=== PATIENT | female | born 1980 | race Caucasian/White ===

== ENCOUNTER 2021-03-06 17:59 | Emergency (ER) | payer OTHER, MEDICAID, SELFPAY ==
[2021-03-06 18:29] VITALS: BP 115/56; PULSE 73; RESP 18; TEMP 36.4; O2SAT 98; BMI 21.9
--- NOTE | 2021-03-06 21:45 | PC.NURSE ---
patient hit in the eye with wood, patient states her colored portion of her eye went from green to brown and back to green. Patient has cut along eye lid and on top of eye lid. Swelling and bruising noted. Patient states her vision has cleared up since being here. Bleeding controlled at this time, scab formed on eye lid.
--- NOTE | 2021-03-06 22:35 | ED_ITS ---
HPI - Eye Problem General Chief complaint: Eye Problems Stated complaint: Left eye injury Time Seen by Provider: 03/06/21 22:30 Source: patient Mode of arrival: Family Vehicle Limitations: no limitations History of Present Illness HPI Narrative: This is a 40-year-old female who was cutting wood using a saw when a piece of wood kicked back and hit her in the left upper eyelid. Patient states she developed a bit of bruising. She has a small cut and noted that it seemed like there was a change the color of her eye itself she states her vision was quite blurry initially but has improved. She has some pain with movement at the extremes. She does not normally wear glasses or contacts. She has never had any injuries to her eyes. She was not wearing safety goggles. She states her tetanus is up-to-date. She takes medication for Crohn's but denies any other medical issues. No major surgeries. She is allergic to penicillin and states she cannot take Imuran. Related Data Previous Rx's Medication Instructions Recorded amoxicillin 875 mg-potassium 875 mg PO BID #20 tab 02/04/16 clavulanate 125 mg tablet (Augmentin) prednisone 20 mg tablet 20 mg PO BID #10 tab 02/04/16 Allergies Allergy/AdvReac Type Severity Reaction Status Date / Time From IMURAN Allergy Mild Uncoded 03/06/21 18:29 PENICILLIN Allergy Mild Uncoded 03/06/21 18:29 Review of Systems Review of Systems ROS Unobtainable: All systems reviewed & are unremarkable except as noted in HPI and below Patient History Social History Smoking Status: Never smoker Smoking Status: Never smoker alcohol intake frequency: holidays/special occasions only Substance Use Type: marijuana Exam Narrative Exam Narrative: GEN: well nourished, well appearing female, alert and oriented x 3, patient appears to be in mild distress. HEENT: Atraumatic, pupils are equal round reactive to light, extraocular movements are intact, nares are clear, there is no conjunctival pallor. No bony tenderness to the face. Throat is clear without any exudates, erythema, tonsillar enlargement or uvular deviation, no other facial injuries. Patient does have ecchymosis and swelling of the left upper lid. There is a small 0.5 cm laceration that is superficial over the upper lid. There is also a punctate lack at the edge of the lid that does not gape. Visual acuity: right [20/25], left [20/40] without correction. IOP: Right [default value] mm Hg, Left 15 mm Hg General: no globe trauma Eyelids: normal inspection, eyelids everted for exam on left. Conjunctiva/Sclera: normal inspection on right, left sclera is slightly injected. No subconjunctival hemorrhages appreciated. Corneas: normal inspection, examined with fluroscein on left with no uptake. EOM: intact, no palsy/entrapment Pupils: PERRL, normal accomadation, pupil normal Anterior Chambers: normal inspection, no hypema noted. Posterior: normal fundoscopic on bilateral HEART: Regular rate and rhythm without murmur, clicks, rubs. LUNGS:Lungs clear to auscultation, no wheezes, rales, crackles, chest moves symmetrically ABD:bowel sounds normal, soft, non-tender, no guarding, rebound, rigidity, no masses noted, no hepatosplenomegaly MSCL: full range of motion, normal gait NEURO:CN 2-12 intact, sensation normal SKIN: See above. Initial Vital Signs Initial Vital Signs: Vital Signs Temperature 97.5 F L 03/06/21 18:29 Pulse Rate 73 03/06/21 18:29 Respiratory Rate 18 03/06/21 18:29 Blood Pressure 115/56 L 03/06/21 18:29 Pulse Oximetry 98 03/06/21 18:29 Course Orders Ordered: Discontinued Medications Fluorescein Sodium (Fluorescein 1 Mg Strip) 1 mg EYE-LEFT NOW ONE Stop: 03/06/21 22:35 Last Admin: 03/06/21 22:45 Dose: 1 mg Documented by: LI Proparacaine HCl (Proparacaine 0.5% Ophth Ginny) 1 drops EYE-LEFT NOW ONE Stop: 03/06/21 22:35 Last Admin: 03/06/21 22:45 Dose: 1 drop Documented by: LI Vital Signs Vital signs: Vital Signs - 8 hr 03/06/21 23:08 Pulse Rate 62 Respiratory Rate 12 Blood Pressure 112/68 Pulse Oximetry 98 MDM - Eye Problem MDM Narrative Medical decision making narrative: This is a 40-year-old female had left eye contusion with ecchymosis. Patient has 2 superficial lacerations 1 along the edge of the last which very slight puncture wound not require repair. The 2nd is a very superficial laceration over the upper lid and patient would likely not have improved healing with sutures and is not suitable for Dermabond. Patient had a close eye exam and no hyphema, foreign body or other changes were appreciated. Patient does have a slight difference in her visual acuity initially but her blurry vision has improved significantly while waiting to be seen. Patient's tetanus was updated. She was given referral for Ophthalmology for follow-up and asked to return if any worsening symptoms over the weekend. Discharge Plan Departure Patient Disposition: Home Clinical Impression: Eyelid laceration, Eye injury Instructions: Eye Contusion Activity Restrictions/Additional Instructions: You may follow-up with ophthalmology if he would like. Call Monday for an appointment. On your exam I did not see any foreign bodies, hyphema or injury to the eye itself. Wound Care: Keep wound(s) clean and dry. Wash daily with soap and water only. Do not use over the counter products (alcohol or peroxide)on the wounds unless instructed by a physician. You may use a topical triple antibiotic ointment to the upper laceration but do not apply to the edges of the lids. If wound condition worsens (increased/expanding redness, developing fluid blisters, or worsening pain), either contact your doctor for an urgent re- assessment , or return to the Emergency Department. Return to the Emergency Department for any new or worsening symptoms. Return if fever greater than 100.4 Fahrenheit, increased swelling, increasing pain or worsening symptoms such as increased discharge or spreading redness. Loss of vision, decreased vision, new or worsening pain in her eye, double visio n or other new or concerning symptoms. Prescriptions: No Action amoxicillin-pot clavulanate [Augmentin] 875 MG/125 MG tablet 875 mg PO BID Qty: 20 0RF prednisone 20 MG tablet 20 mg PO BID Qty: 10 0RF
[2021-03-06] MEDS: FLUORESCEIN 1 MG STRIP EYE-LEFT (22:45)
[2021-03-06] MEDS: PROPARACAINE 0.5% OPHTH SOL 1 DROPS EYE-LEFT (22:45)
[2021-03-06 23:08] VITALS: BP 112/68; PULSE 62; RESP 12; O2SAT 98
== END 2021-03-06 23:08 | disposition home or self-care (01) ==
PROVIDERS: Emergency Provider Emergency Medicine
DX: S01.112A Laceration without foreign body of left eyelid and periocular area, initial encounter (principal); S05.92XA Unspecified injury of left eye and orbit, initial encounter; W20.8XXA Other cause of strike by thrown, projected or falling object, initial encounter; Y93.89 Activity, other specified
CPT/HCPCS: 99282

== ENCOUNTER 2023-02-19 16:34 | Emergency (ER) | payer OTHER, MEDICAID, SELFPAY ==
[2023-02-19 16:49] VITALS: PULSE 67; RESP 16; TEMP 37.1; O2SAT 99; BMI 21.0
--- NOTE | 2023-02-19 16:52 | ED_ITS ---
HPI - Wound/Laceration <Hali Dickerson PA-C - Last Filed: 02/19/23 19:55> General Chief Complaint: Wound/Laceration Stated Complaint: v groove cutter cut left thumb Time Seen by Provider: 02/19/23 16:43 History of Present Illness HPI narrative: 42-year-old female here in the ED for a laceration to her left caused by a weed whacker. Occurred just prior to arrival. Patient has not been able to cleanse the wound due to pain. she is unsure of her last tetanus shot. She is able to wiggle the thumb and denies any feeling of numbness or tingling. Related Data Previous Rx's Medication Instructions Recorded amoxicillin 875 mg-potassium 875 mg PO BID #20 tabs 02/04/16 clavulanate 125 mg tablet (Augmentin) prednisone 20 mg tablet 20 mg PO BID #10 tabs 02/04/16 doxycycline hyclate 100 mg capsule 100 mg PO BID #20 caps 02/19/23 Allergies Allergy/AdvReac Type Severity Reaction Status Date / Time azathioprine [From Imuran] Allergy Verified 02/19/23 16:49 Penicillins AdvReac Yeast Verified 02/19/23 16:49 Infection Review of Systems <Hali Dickerson PA-C - Last Filed: 02/19/23 19:55> Review of Systems ROS Unobtainable: All systems reviewed & are unremarkable except as noted in HPI and below Patient History <Hali Dickerson PA-C - Last Filed: 02/19/23 19:55> Social History Smoking Status: Never smoker Smoking Status: Never smoker alcohol intake frequency: holidays/special occasions only Substance Use Type: marijuana Exam <Hali Dickerson PA-C - Last Filed: 02/19/23 19:55> Narrative Exam Narrative: GENERAL: [42] year old patient appears stated age. Well-developed patient, in no acute distress. Slightly pale upon arrival HEAD: Atraumatic. Normocephalic. EYES: Pupils equal round and reactive. Extraocular motions intact. No scleral icterus. No injection or drainage. ENT: Nose without bleeding, purulent drainage. Throat without erythema, tonsillar hypertrophy or exudate. Airway patent. NECK: Trachea midline. Non tender CARDIOVASCULAR: Regular rate and rhythm without murmurs, gallops, or rubs. RESPIRATORY: Respiratory rate and effort normal Extremities: Base of left thumb with 2 cm linear laceration to the palmar surface. Some minimal active bleeding, extends into the subcutaneous layer with no visible tendon or bone or foreign body noted. Full range of motion and strength of the affected digit, normal cap refill, normal sensation NEURO: AOx3. Initial Vital Signs Initial Vital Signs: Vital Signs Temperature 98.7 F 02/19/23 16:49 Pulse Rate 67 02/19/23 16:49 Respiratory Rate 16 02/19/23 16:49 Pulse Oximetry 99 02/19/23 16:49 Oxygen Delivery Method Room Air 02/19/23 16:49 <Sofía Webb MD - Last Filed: 02/20/23 04:27> Initial Vital Signs Initial Vital Signs: Vital Signs Temperature 98.7 F 02/19/23 16:49 Pulse Rate 67 02/19/23 16:49 Respiratory Rate 16 02/19/23 16:49 Pulse Oximetry 99 02/19/23 16:49 Oxygen Delivery Method Room Air 02/19/23 16:49 Procedures <Hali Dickerson PA-C - Last Filed: 02/19/23 19:55> Laceration Repair Laceration 1: Time of procedure: 05:45 Site: hand (Left thumb) Size (cm): 2 Description: linear Depth: involves muscle layer Local Anesthetic: lidocaine 2% Amount of anesthesia used (mL): 2.5 Pre-repair: wound explored, irrigated extensively and deep structures intact Skin layer closed with: nylon Skin layer suture size: 4-0 Number of sutures: 8 Technique: simple, interrupted Course <Hali Dickerson PA-C - Last Filed: 02/19/23 19:55> Orders Ordered: Discontinued Medications Diphtheria/Tetanus/Acell Pertussis (Tet,Diph,Pertuss(Acell),Vac/Pf 0.5 Ml Syringe) 0.5 ml IM .ONCE ONE Stop: 02/19/23 18:24 Last Admin: 02/19/23 18:30 Dose: 0.5 ml Documented By: YUNG Ketorolac Tromethamine (Ketorolac 30 Mg/Ml Vial) 60 mg IM NOW ONE Stop: 02/19/23 17:01 Last Admin: 02/19/23 17:13 Dose: Not Given Documented By: RL Ketorolac Tromethamine (Ketorolac 30 Mg/Ml Vial) 30 mg IM NOW ONE Stop: 02/19/23 17:13 Last Admin: 02/19/23 17:16 Dose: 30 mg Documented By: RL Lidocaine HCl (Lidocaine 2% Inj Sdv 5ml) 5 ml INJ INTRA-OP ONE Stop: 02/19/23 17:35 Last Admin: 02/19/23 17:37 Dose: 5 ml Documented By: RL Vital Signs Vital signs: Vital Signs - 8 hr 02/19/23 16:49 02/19/23 16:54 02/19/23 18:00 Temperature 98.7 F Pulse Rate 67 59 L Respiratory Rate 16 20 Blood Pressure 92/55 L 96/54 L Pulse Oximetry 99 100 Oxygen Delivery Method Room Air Room Air <Sofía Webb MD - Last Filed: 02/20/23 04:27> Orders Ordered: Discontinued Medications Diphtheria/Tetanus/Acell Pertussis (Tet,Diph,Pertuss(Acell),Vac/Pf 0.5 Ml Syringe) 0.5 ml IM .ONCE ONE Stop: 02/19/23 18:24 Last Admin: 02/19/23 18:30 Dose: 0.5 ml Documented By: YUNG Ketorolac Tromethamine (Ketorolac 30 Mg/Ml Vial) 60 mg IM NOW ONE Stop: 02/19/23 17:01 Last Admin: 02/19/23 17:13 Dose: Not Given Documented By: RL Ketorolac Tromethamine (Ketorolac 30 Mg/Ml Vial) 30 mg IM NOW ONE Stop: 02/19/23 17:13 Last Admin: 02/19/23 17:16 Dose: 30 mg Documented By: YUNG Lidocaine HCl (Lidocaine 2% Inj Sdv 5ml) 5 ml INJ INTRA-OP ONE Stop: 02/19/23 17:35 Last Admin: 02/19/23 17:37 Dose: 5 ml Documented By: YUNG Vital Signs Vital signs: Vital Signs - 8 hr 02/19/23 16:49 02/19/23 16:54 02/19/23 18:00 Temperature 98.7 F Pulse Rate 67 59 L Respiratory Rate 16 20 Blood Pressure 92/55 L 96/54 L Pulse Oximetry 99 100 Oxygen Delivery Method Room Air Room Air MDM - Wound/Laceration <Hali Dickerson PA-C - Last Filed: 02/19/23 19:55> Imaging Data Extremity x-ray #1: My Impression: [address] [address] XRay Report Signed Patient: Ashanti Garcia MR#: [id number] : 1980 Acct:[id number] Age/Sex: 42 / F Date of Service: 02/19/23 Loc: ED Accession Number: [id number] Procedure: XR finger LT min 2V Ordering Provider: Hali Dickerson P.A-C PROCEDURE: XR FINGER LT MIN 2V INDICATIONS: Laceration TECHNIQUE: AP hand, 2 views of the bony abnormality finger(s) acquired. COMPARISON: None. FINDINGS: Bones: There is a mild bony defect seen at the site of the soft tissue laceration, involving the distal radial aspect of the 1st metacarpal. A few tiny bone fragments can be seen within the surrounding soft tissues. No additional focal bony abnormality is seen. Soft tissues: Soft tissue laceration can be seen involving the base of the thumb. Soft tissue gas is seen. No radiopaque foreign bodies are seen. IMPRESSION: Laceration seen involving the radial aspect of the distal 1st metacarpal, with soft tissue defect and a mild amount of missing bone. Dictated by: Gerardo Drew M.D. on 02/19/2023 at 17:35 Approved by: Gerardo Drew M.D. on 02/19/2023 at 17:36 [facility] Narrative Medical decision making narrative: 42-year-old female here for laceration to the base of her left thumb. On exam she has a 2 cm linear laceration which appears to go to the muscle layer, but she has full range of motion, normal strength, normal sensation and cap refill. X-ray was performed which shows a tiny bony fragment to the lateral most portion of the finger. The laceration was repaired with 8 simple interrupted stitches which patient tolerated well and she continued to have normal sensation and cap refill as well as movement of her thumb. Due to the location of the laceration she was placed in a splint because any flexion of her thumb placed too much tension on the stitches. We will also provide patient with a prescription for antibiotics due to the bony fragments seen on x-ray. We discussed strict return precautions if there is any signs of infection, and to return in 8-10 days for suture removal Discharge Plan Departure Patient Disposition: Home Clinical Impression: Laceration of left thumb Qualifiers: Encounter type: initial encounter Damage to nail status: without damage Foreign body presence: without foreign body Qualified Code(s): S61.012A - Laceration without foreign body of left thumb without damage to nail, initial encounter Instructions: DI for Laceration Repair, DI for Laceration Repair -- Finger Activity Restrictions/Additional Instructions: You were seen today for a laceration of her left thumb. An x-ray was performed which showed no bony damage or evidence of foreign body. Eight stitches were placed in your left thumb which will need to be removed in 8-10 days. Please keep your thumb in the splint that was placed today. You may remove the splint twice daily to wash the area with soap and water gently. If you see any signs of redness, worsening pain, pus discharge or fevers please return to the ED. Otherwise follow up in 8-10 days for stitch removal. Prescriptions: New doxycycline hyclate 100 mg capsule 100 mg PO BID Qty: 20 0RF No Action amoxicillin-pot clavulanate [Augmentin] 875 MG/125 MG tablet 875 mg PO BID Qty: 20 0RF prednisone 20 MG tablet 20 mg PO BID Qty: 10 0RF Referrals: Alexey Wadsworth DO [Primary Care Provider] - Stand Alone Forms: Patient Portal/API ED Sign-out <Sofía Webb MD - Last Filed: 02/20/23 04:27> Cosign ED Attending Bernardo Attestation: I was immediately available in the department for consultation throughout this patient's visit. Sofía Webb MD
[2023-02-19 16:54] VITALS: BP 92/55
--- NOTE | 2023-02-19 16:58 | DI.RAD.S_ITS ---
PROCEDURE: XR FINGER LT MIN 2V INDICATIONS: Laceration TECHNIQUE: AP hand, 2 views of the bony abnormality finger(s) acquired. COMPARISON: None. FINDINGS: Bones: There is a mild bony defect seen at the site of the soft tissue laceration, involving the distal radial aspect of the 1st metacarpal. A few tiny bone fragments can be seen within the surrounding soft tissues. No additional focal bony abnormality is seen. Soft tissues: Soft tissue laceration can be seen involving the base of the thumb. Soft tissue gas is seen. No radiopaque foreign bodies are seen. IMPRESSION: Laceration seen involving the radial aspect of the distal 1st metacarpal, with soft tissue defect and a mild amount of missing bone. Dictated by: Gerardo Drew M.D. on 02/19/2023 at 17:35 Approved by: Gerardo Drew M.D. on 02/19/2023 at 17:36
[2023-02-19] MEDS: KETOROLAC 30 MG/ML VIAL IM (17:16)
[2023-02-19] MEDS: LIDOCAINE 2% INJ SDV 5ML 5 ML INJ (17:37)
[2023-02-19 18:00] VITALS: BP 96/54; PULSE 59; RESP 20; O2SAT 100
[2023-02-19] MEDS: TET,DIPH,PERTUSS(ACELL),VAC/PF 0.5 ML SYRINGE IM (18:30)
--- NOTE | 2023-02-19 20:09 | PC.NURSE ---
Per provider request, called patient to notify her of open fracture and antibiotics that were sent in to [facility]. Patient acknowledged this education and location of antibiotic prescription.
== END 2023-02-19 18:58 | disposition home or self-care (01) ==
PROVIDERS: Emergency Provider Physician Assistant; PCP Family Medicine
DX: S61.012A Laceration without foreign body of left thumb without damage to nail, initial encounter (principal); W29.3XXA Contact with powered garden and outdoor hand tools and machinery, initial encounter; Z23 Encounter for immunization
CPT/HCPCS: 12041; 73140; 90471; 96372; 99283; 99284; 90715; J1885

== ENCOUNTER 2023-03-01 17:25 | Emergency (ER) | payer OTHER, MEDICAID, SELFPAY ==
[2023-03-01 17:50] VITALS: PULSE 70; RESP 18; TEMP 37.2; O2SAT 99; BMI 21.0
--- NOTE | 2023-03-01 18:36 | ED.UPPEXIN ---
HPI - Extremity Injury (Upper) <Aron Daniels PA-C - Last Filed: 03/01/23 18:42> General Chief Complaint: Extremity Injury, Upper Stated Complaint: 10day ago stitches- want them out Time Seen by Provider: 03/01/23 18:29 Source: patient Mode of arrival: Ambulatory History of Present Illness HPI narrative: 42-year-old female presents to the ED for suture removal from a left thumb injury sustained 10 days ago. Patient states that her wound has been healing well with no signs of infection. Patient denies fever, chills. Related Data Previous Rx's Medication Instructions Recorded amoxicillin 875 mg-potassium 875 mg PO BID #20 tabs 02/04/16 clavulanate 125 mg tablet (Augmentin) prednisone 20 mg tablet 20 mg PO BID #10 tabs 02/04/16 doxycycline hyclate 100 mg capsule 100 mg PO BID #20 caps 02/19/23 Allergies Allergy/AdvReac Type Severity Reaction Status Date / Time azathioprine [From Imuran] Allergy Verified 02/19/23 16:49 Penicillins AdvReac Yeast Verified 02/19/23 16:49 Infection Review of Systems <Aron Daniels PA-C - Last Filed: 03/01/23 18:42> Constitutional Constitutional: Denies chills, Denies fatigue, Denies fever(s), Denies frequent falls, Denies lethargy and Denies weakness Eyes Eyes: Denies change in vision, Denies eye discharge, Denies irritation and Denies loss of vision ENT Ears, Nose, Mouth, and Throat: Denies change in voice, Denies dizziness, Denies neck pain, Denies sore throat and Denies throat swelling Cardiovascular Cardiovascular: Denies chest pain, Denies irregular heart rhythm, Denies lightheadedness, Denies palpitations, Denies dyspnea, Denies dyspnea on exertion and Denies orthopnea Respiratory Respiratory: Denies cough, Denies dyspnea, Denies dyspnea on exertion and Denies wheezing Gastrointestinal Gastrointestinal: Denies abdominal pain, Denies change in bowel habits, Denies diarrhea, Denies nausea and Denies vomiting Musculoskeletal Musculoskeletal: Denies neck pain and Denies numbness Integumentary/Breasts Skin/Breast: Denies pruritus, Denies erythema, Denies rash and Denies wounds Comments: Sutures need to be removed Neurologic Neurologic: Denies behavioral changes, Denies confusion, Denies dizziness, Denies frequent falls, Denies loss of vision, Denies numbness and Denies weakness Psychiatric Psychiatric: Denies anxiety, Denies behavioral changes, Denies confusion, Denies depression, Denies homicidal ideation and Denies suicidal ideation Endocrine Endocrine: Denies fatigue, Denies flushing and Denies palpitations Hematologic/Lymphatic Hematologic/Lymphatic: Denies easy bruising Allergic/Immunologic Allergic/Immunologic: Denies urticaria, Denies throat swelling and Denies wheezing Patient History <Aron Daniels PA-C - Last Filed: 03/01/23 18:42> Social History Smoking Status: Never smoker Smoking Status: Never smoker alcohol intake frequency: holidays/special occasions only Substance Use Type: does not use and marijuana Exam <Aron Daniels PA-C - Last Filed: 03/01/23 18:42> Narrative Exam Narrative: Const General:?cooperative, healthy appearing and comfortable [facility] Head:?normal to inspection Ears:?hearing grossly normal bilaterally Nose:?external nose normal Face and sinus:?normal facial exam and sinuses nontender Mouth:?oral mucosae normal Throat:?posterior oropharynx normal Eyes General:?appearance normal, both eyes and all related structures Neck Neck:?normal visual inspection and no lymphadenopathy noted Resp Effort & Inspection:?normal respiratory effort Auscultation:?clear to auscultation bilaterally Cardio Rate:?regular rate Rhythm:?regular rhythm Integumentary 8 sutures are intact. Wound has healed well with edges approximated well. No signs of infection. Patient is neurovascularly intact. Neuro General:?patient alert, patient awake and patient oriented x3 Initial Vital Signs Initial Vital Signs: Vital Signs Temperature 99 F 03/01/23 17:50 Pulse Rate 70 03/01/23 17:50 Respiratory Rate 18 03/01/23 17:50 Pulse Oximetry 99 03/01/23 17:50 Oxygen Delivery Method Room Air 03/01/23 17:50 <Nicol Barnes DO - Last Filed: 03/06/23 07:46> Initial Vital Signs Initial Vital Signs: Vital Signs Temperature 99 F 03/01/23 17:50 Pulse Rate 70 03/01/23 17:50 Respiratory Rate 18 03/01/23 17:50 Pulse Oximetry 99 03/01/23 17:50 Oxygen Delivery Method Room Air 03/01/23 17:50 Course <Aron Daniels PA-C - Last Filed: 03/01/23 18:42> Vital Signs Vital signs: Vital Signs - 8 hr 03/01/23 17:50 Temperature 99 F Pulse Rate 70 Respiratory Rate 18 Pulse Oximetry 99 Oxygen Delivery Method Room Air <Nicol Barnes DO - Last Filed: 03/06/23 07:46> Vital Signs Vital signs: Vital Signs - 8 hr 03/01/23 17:50 Temperature 99 F Pulse Rate 70 Respiratory Rate 18 Pulse Oximetry 99 Oxygen Delivery Method Room Air MDM - Extremity Injury (Upper) <Aron Daniels PA-C - Last Filed: 03/01/23 18:42> MDM Narrative Medical decision making narrative: 42-year-old female presents to the ED for suture removal from a left thumb injury sustained 10 days ago. Patient's wound appears to have been healing well without any signs of infection. Eight sutures were removed from the base of the left thumb. Patient tolerated the procedure well. ED return precautions were discussed with patient. Patient verbalized understanding. Medical records reviewed: Yes Discharge Plan Departure Patient Disposition: Home Clinical Impression: Encounter for removal of sutures Instructions: DI for Suture Removal Activity Restrictions/Additional Instructions: You were seen in the ED today for suture removal. Eight sutures were removed from your left thumb. Your wound has healed well with no signs of infection. Please return to the ED if you have worsening symptoms, see signs of infection including worsening redness, swelling, pain, warmth, discharge. Prescriptions: No Action amoxicillin-pot clavulanate [Augmentin] 875 MG/125 MG tablet 875 mg PO BID Qty: 20 0RF prednisone 20 MG tablet 20 mg PO BID Qty: 10 0RF doxycycline hyclate 100 mg capsule 100 mg PO BID Qty: 20 0RF Referrals: Alexey Wadsworth DO [Primary Care Provider] - Stand Alone Forms: Patient Portal/API ED Sign-out <Nicol Barnes DO - Last Filed: 03/06/23 07:46> Cosign ED Attending Cosignature Attestation: I was available for consultation.
[2023-03-01 18:52] VITALS: BP 120/85; PULSE 67; RESP 16; TEMP 36.6; O2SAT 99
== END 2023-03-01 18:53 | disposition home or self-care (01) ==
PROVIDERS: Emergency Provider Student in an Organized Health Care Education/Training Program; PCP Family Medicine
DX: Z48.02 Encounter for removal of sutures (principal)
CPT/HCPCS: 99281